=== PATIENT | male | born 1990 | race Caucasian/White ===

== ENCOUNTER → 2022-01-27 08:15 | Outpatient (CLI) | payer BC, SELFPAY ==
--- NOTE | ~2022-01-27 | XR_ITS ---
EXAMINATION: XR knee LT 3V DATE: 01/27/2022 09:30 INDICATION: Left knee pain. TECHNIQUE: 3 views of left knee including standing views were obtained. COMPARISON: None. FINDINGS: Bone alignment is normal. No fracture. Joint spaces are well maintained. No knee joint effu migdalia. IMPRESSION: 1. Normal left knee. Reviewed, dictated and finalized at location A. 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 Normal left knee.
--- NOTE | ~2022-01-27 | XR_ITS ---
EXAMINATION: XR knee RT 3V DATE: 01/27/2022 09:30 INDICATION: Right knee pain. TECHNIQUE: 3 views of right knee including standing views were obtained. COMPARISON: None. FINDINGS: Bone alignment is normal. No fracture. Joint spaces are well maintained. There is no knee j oint effusion. IMPRESSION: 1. Normal right knee. Reviewed, dictated and finalized at location A. [place] MORTGAGE BANKER IMPRESSION: 1. Normal right knee.
== END ==
PROVIDERS: Visit Provider Nurse Practitioner Family
DX: M25.561 Pain in right knee (principal); M25.562 Pain in left knee
CPT/HCPCS: 73562

== ENCOUNTER → 2022-12-26 15:50 | Outpatient (CLI) | payer BC, SELFPAY ==
--- NOTE | ~2022-12-26 | XR_ITS ---
Left wrist Technique: PA and lateral views were obtained. Clinical History: Pain Findings: No acute fracture or dislocation is seen. Osseous alignment is anatomic. Joint spaces are p reserved. Soft tissues are unremarkable. Impression: Unremarkable left wrist radiographs. Reviewed, dictated and finalized at location M. GY EFFICIENT SITE MANAGER Impression: Unremarkable left wrist radiographs.
--- NOTE | ~2022-12-26 | XR_ITS ---
Right wrist Technique: PA and lateral views were obtained. Clinical History: Pain Findings: No acute fracture or dislocation is seen. Osseous alignment is anatomic. Joint spaces are p reserved. Soft tissues are unremarkable. Impression: Unremarkable right wrist radiographs. Reviewed, dictated and finalized at location M. ER ROOM ATTENDANT Impression: Unremarkable right wrist radiographs.
== END ==
PROVIDERS: PCP Family Medicine; Visit Provider Nurse Practitioner Family
DX: M25.531 Pain in right wrist (principal); M25.532 Pain in left wrist
CPT/HCPCS: 73100

== ENCOUNTER 2023-03-30 08:01 | Outpatient (CLI) | payer BC, SELFPAY ==
--- NOTE | ~2023-03-30 | XR_ITS ---
EXAMINATION: XR chest 2V 03/30/2023 08:19 INDICATION: Anxiety disorder PROCEDURE: 2 view chest COMPARISON: No prior studies for comparison. FINDINGS: The lungs are clear. The cardiomediastinal silhouette is within normal limits. There are no pleural effusions. There is no pneumothorax suspected. IMPRESSION: 1: NO ACUTE CARDIOPULMONARY DISEASE. Reviewed, dictated and finalized at location A.
--- NOTE | 2023-03-30 08:23 | ECG_ITS ---
Measurements Intervals [place] Rate: 65 P: 69 [place]: 128 QRS: 81 QRSD: 97 T: 52 QT: 349 QTc: 365 Interpretive Statements SINUS RHYTHM POSSIBLE LEFT ATRIAL ENLARGEMENT RSR' IN V1 OR V2, PROBABLY NORMAL VARIANT BORDERLINE ECG NO PREVIOUS ECG AVAILABLE FOR COMPARISON Electronically Signed On 03-30-2023 13:00:36 CDT by Quinten Crockett D.O.
== END 2023-03-30 08:02 | disposition home or self-care (01) ==
PROVIDERS: PCP Family Medicine; Visit Provider Nurse Practitioner Family
DX: R07.9 Chest pain, unspecified (principal); F41.9 Anxiety disorder, unspecified; F32.A Depression, unspecified; R05.9 Cough, unspecified; R94.31 Abnormal electrocardiogram [ECG] [EKG]
CPT/HCPCS: 71046; 93005

== ENCOUNTER 2023-04-18 10:59 | Outpatient (CLI) | payer BC, SELFPAY ==
--- NOTE | 2023-04-23 12:45 | WPDHOLTEREM ---
Holter/Event Monitor Holter/Event Monitor Date of procedure: 04/18/23 Holter/Event Procedure: 24 Hr Holter Monitor Indications: Chest pain Conclusion: 1. 24 hour holter monitor on 04/18/23. 2. Underlying rhythm is sinus rhythm. HR range 46-138 bpm; average HR 81 bpm. 3. There are 32 premature supraventricular complexes and 3 supraventricular couplets. No supraventricular tachycardia. 4. There is 1 premature ventricular complex. No ventricular tachycardia. 5. No sinoatrial or atrioventricular blocks. No significant pauses greater than 2 seconds. 6. Patient reports symptoms of fluttering, chest pain, shortness of breath, dizziness which demonstrate sinus rhythm, HR range 70-129 bpm.
== END 2023-04-18 11:00 | disposition home or self-care (01) ==
LOC: ANHCARD 11:01
PROVIDERS: PCP Family Medicine; Visit Provider Nurse Practitioner Family
DX: R07.9 Chest pain, unspecified (principal); R42 Dizziness and giddiness
CPT/HCPCS: 93225; 93226

== ENCOUNTER 2023-07-17 13:20 | Outpatient (CLI) | payer BC, SELFPAY ==
--- NOTE | 2023-07-17 14:00 | NEURO_ITS ---
Impression: # Non-diabetic complains of right wrist pain. # Right ulnar neuropathy around the elbow. # No Carpal Tunnel Syndrome. # Normal needle/EMG exam. Nerve Conduction Studies Anti Sensory Summary Table Stim Site NR Peak (ms) P-T Amp (?V) Site1 Site2 Delta-P (ms) Dist (cm) Nilson (m/s) Left Median Anti Sensory (2-3nd Digit) Wrist 2.9 49.7 Wrist 2-3nd Digit 2.9 14.0 48 Wrist 2.8 71.7 Wrist 2-3nd Digit 2.9 14.0 48 Right Median Anti Sensory (2-3nd Digit) Wrist 2.9 58.1 Wrist 2-3nd Digit 2.9 14.0 48 Wrist 2.8 79.8 Wrist 2-3nd Digit 2.9 14.0 48 Left Radial Anti Sensory (Base 1st Digit) Wrist 2.4 40.7 Wrist Base 1st Digit 2.4 0.0 Right Radial Anti Sensory (Base 1st Digit) Wrist 3.0 20.9 Wrist Base 1st Digit 3.0 0.0 Left Ulnar Anti Sensory (5th Digit) Wrist 2.7 42.6 Wrist 5th Digit 2.7 14.0 52 Right Ulnar Anti Sensory (5th Digit) Wrist 2.7 28.9 Wrist 5th Digit 2.7 14.0 52 Motor Summary Table Stim Site NR Onset (ms) O-P Amp (mV) Site1 Site2 Delta-0 (ms) Dist (cm) Nilson (m/s) Left Median Motor (Abd Poll Brev) Wrist 3.2 7.0 Elbow Wrist 5.1 31.0 61 Elbow 8.3 8.8 Right Median Motor (Abd Poll Brev) Wrist 3.1 5.6 Elbow Wrist 5.0 31.0 62 Elbow 8.1 5.7 Left Ulnar Motor (Abd Dig Minimi) Wrist 2.6 9.6 A Elbow Wrist 5.2 31.0 60 A Elbow 7.8 6.6 Right Ulnar Motor (Abd Dig Minimi) Wrist 2.5 7.4 A Elbow Wrist 6.2 32.0 52 A Elbow 8.7 5.2 B Elbow Wrist 3.8 21.0 55 B Elbow 6.3 6.5 F Wave Studies NR F-Lat (ms) L-R F-Lat (ms) Left Median (Mrkrs) (Abd Poll Brev) 28.25 0.00 Right Median (Mrkrs) (Abd Poll Brev) 28.25 0.00 Left Ulnar (Mrkrs) (Abd Dig Min) 27.67 0.36 Right Ulnar (Mrkrs) (Abd Dig Min) 28.03 0.36 EMG Side Muscle Nerve Root Ins Act Fibs Amp Dur Recrt Comment Right 1stDorInt Ulnar C8-T1 Nml Nml Nml Nml Nml Right Ext Indicis Radial (Post Int) C7-8 Nml Nml Nml Nml Nml Right Ext Digitorum Radial (Post Int) C7-8 Nml Nml Nml Nml Nml Right BrachioRad Radial C5-6 Nml Nml Nml Nml Nml Right PronatorTeres Median C6-7 Nml Nml Nml Nml Nml Right Abd Poll Brev Median C8-T1 Nml Nml Nml Nml Nml Left 1stDorInt Ulnar C8-T1 Nml Nml Nml Nml Nml Left Ext Indicis Radial (Post Int) C7-8 Nml Nml Nml Nml Nml Left Ext Digitorum Radial (Post Int) C7-8 Nml Nml Nml Nml Nml Left BrachioRad Radial C5-6 Nml Nml Nml Nml Nml Left PronatorTeres Median C6-7 Nml Nml Nml Nml Nml Left Abd Poll Brev Median C8-T1 Nml Nml Nml Nml Nml MTDD
== END 2023-07-17 13:21 | disposition home or self-care (01) ==
LOC: ANHNEURO 13:20
PROVIDERS: PCP Family Medicine; Visit Provider Nurse Practitioner Family
DX: G56.21 Lesion of ulnar nerve, right upper limb (principal); M79.642 Pain in left hand; M79.641 Pain in right hand
CPT/HCPCS: 95886; 95911